=== PATIENT | female | born 1965 | race Caucasian/White ===

== ENCOUNTER 2023-07-11 13:39 | Emergency (ER) | payer BC ==
[~2023-07-11] VITALS: Ht 160 cm; Wt 68.0 kg
[2023-07-11] MEDS ORDERED: KEFLEX500 MG PO (16:39)
[2023-07-11 16:51] VITALS: BP 138/96
== END 2023-07-11 17:43 | disposition home or self-care (01) | DRG 605 ==
LOC: ED 13:39
PROC: 0HQFXZZ Repair Right Hand Skin, External Approach (ICD-10-PCS; principal; 2023-07-11)
DX: S61.210A Laceration without foreign body of right index finger without damage to nail, initial encounter (principal); W31.89XA Contact with other specified machinery, initial encounter; Y93.89 Activity, other specified; Y92.009 Unspecified place in unspecified non-institutional (private) residence as the place of occurrence of the external cause

== ENCOUNTER 2024-07-30 07:59 | Emergency (ER) | payer BC ==
[~2024-07-30] VITALS: Ht 160 cm; Wt 71.2 kg
[2024-07-30] VITALS (12 sets, daily range): BP systolic 137–162; BP diastolic 90–115
[~2024-07-30 07:59] MED LIST: KEFLEX500 MG PO
[2024-07-30 08:38] LABS: BASO% 0.6 % (0-3); EOS% 2.9 % (0-8); HEMATOCRIT 44.9 % (37.0-47.0); HEMOGLOBIN 14.3 g/dl (12.0-16.0); IMMATURE GRANULOCYTES 0.2 % (0.0-5.0); LYMPH% 42.1 % (15-41); MEAN CORPUSCULAR HGB 27.4 pG CALC (26.0-32.0); MEAN CORPUSCULAR HGB CONC 31.8 g/dL CAL (32.0-36.0); MONO% 6.3 % (2-13); NEUT# 3.19 thou/uL (2.00-7.15); NEUT% 47.9 % (42-76); RED BLOOD COUNT 5.22 mill/uL (4.20-5.60)
[2024-07-30 08:46] LABS: ALBUMIN 4.6 g/dL (3.2-5.0); CREATININE 0.9 mg/dL (0.5-1.0); POTASSIUM 3.8 mmol/l (3.5-5.1); TOTAL PROTEIN 7.7 g/dL (6.3-8.2)
[2024-07-30] MEDS ORDERED: NAPROXEN500 MG PO (10:47)
== END 2024-07-30 11:03 | disposition home or self-care (01) | DRG 552 ==
LOC: ED 07:59
PROVIDERS: Family Medicine
DX: S16.1XXA Strain of muscle, fascia and tendon at neck level, initial encounter (principal); X58.XXXA Exposure to other specified factors, initial encounter
CPT/HCPCS: Q9967